=== PATIENT | male | born 1990 | race Caucasian/White ===

== ENCOUNTER 2018-11-02 05:15 | Emergency (ER) | payer MEDICARE, MEDICAID ==
[~2018-11-02] VITALS: Ht 182.9 cm; Wt 94.8 kg
[2018-11-02] MEDS ORDERED: ketorolac trometh inj. 60 MG/2 ML VIAL IM ONE (06:30)
[2018-11-02 06:45] VITALS: BP 166/98
== END 2018-11-02 06:47 | disposition home or self-care (01) ==
LOC: ER 05:16
DX: K02.9 Dental caries, unspecified (principal); F12.90 Cannabis use, unspecified, uncomplicated
CPT/HCPCS: 96372; 99283; J1885

== ENCOUNTER 2023-09-25 02:36 | Emergency (ER) | payer MEDICARE, MEDICAID ==
[~2023-09-25] VITALS: Ht 182.9 cm; Wt 105.0 kg
[2023-09-25 02:39] VITALS: TEMP 98
[2023-09-25 03:21] VITALS: BP 112/79; PULSE 82; RESP 16; O2SAT 99
== END 2023-09-25 03:20 | disposition home or self-care (01) ==
LOC: ER 02:37
DX: S30.813A Abrasion of scrotum and testes, initial encounter (principal); X58.XXXA Exposure to other specified factors, initial encounter; Y93.89 Activity, other specified; Y92.89 Other specified places as the place of occurrence of the external cause; Y99.8 Other external cause status
CPT/HCPCS: 99283